=== PATIENT | male | born 1950 | race Caucasian/White ===

== ENCOUNTER 2017-09-08 10:52 | Emergency (ER) | payer MEDICARE ==
--- NOTE | 2017-09-08 11:36 | RAD ---
SINGLE VIEW OF THE CHEST: HISTORY: Chills, cough, and bodyaches for two weeks. COMPARISON: 04/04/2012 FINDINGS: A single view of the chest shows a normal sized cardiomediastinal silhouette. The patient is status post CABG. There is no evidence of consolidation, mass, or pleural effusion. IMPRESSION: No evidence of acute cardiopulmonary disease. POS: [facility]
[2017-09-08 11:59] LABS: #Basophils 0.1 thou/uL (0.0-0.2); #Eosinphils 0.1 thou/uL (0.0-0.7); #Lymphocytes 1.3 thou/uL (1.20-3.40); #Monocytes 0.8 thou/uL (0.11-0.59); #Neutrophils 4.4 thou/uL (1.40-6.50); %Basophils 0.8 % (0.0-1.0); %Eosinophils 1.1 % (0.0-10.0); %Lymphocytes 19.6 % (21.0-51.0); %Monocytes 12.2 % (0.0-10.0); %Neutrophils 66.2 % (42.0-75.0); Hemoglobin 12.7 g/dL (14.0-18.0); Mean Corpuscular HGB CONC 32.7 g/dL (32.0-36.0); Mean Corpuscular Hemoglobin 29.4 pg (27.0-31.0); Mean Corpuscular Volume 89.9 fl (80.0-94.0); Platelet Count 297 thou/uL (130-400); RBC Distribution Width 11.9 % (11.5-14.5); Red Blood Cell (RBC) Count 4.33 mill/uL (4.70-6.10); White Blood Cell (WBC) Count 6.6 thou/uL (4.8-10.8)
[2017-09-08 12:09] LABS: ALT (SGPT) 22 U/L (8-55); AST (SGOT) 19 U/L (5-34); Albumin 3.6 g/dL (3.4-4.8); Alkaline Phosphatase 77 U/L (40-150); Anion Gap 15 mmol/L (10-20); BUN (Urea Nitrogen) 19 mg/dL (8.4-25.7); Bilirubin, Total 0.7 mg/dL (0.2-1.2); CK (CPK) 61 U/L (30-200); Calc. Creatinine Clearance 0 mL/min (70-130); Calcium 9.6 mg/dL (7.8-10.44); Carbon Dioxide 26 mmol/L (23-31); Chloride 101 mmol/L (98-107); Estimated GFR-MDRD Greater than 90; Globulin 3.8 g/dL (2.4-3.5); Glucose 184 mg/dL (80-115); Lipase 8 U/L (8-78); Protein, Total 7.4 g/dL (5.8-8.1); Sodium 138 mmol/L (136-145)
[2017-09-08 12:10] LABS: CKMB 0.6 ng/mL (0-6.6); Troponin I Less than 0.010 ng/mL (< 0.028)
[2017-09-08 12:33] LABS: Bilirubin Negative (Negative); Blood, Urine Negative (Negative); Clarity Clear (Clear); Glucose, Urine (Dipstick) Negative (Negative); Leukocyte Negative (Negative); Nitrite Negative (Negative); Protein, Urine (Dipstick) Negative (Neg-Trace); Specific Gravity, Urine 1.025 (1.005-1.030); Urobilinogen 0.2 mg/dL (0.2-1.0); pH, Urine 5.5 (5.0-9.0)
[2017-09-08] MEDS ORDERED: Ketorolac Tromethamine 30 MG/ML VIAL ONE (12:47)
== END 2017-09-08 12:57 | disposition home or self-care (01) ==
LOC: SCSER 10:52
DX: J20.9 Acute bronchitis, unspecified (principal); I25.10 Atherosclerotic heart disease of native coronary artery without angina pectoris; I25.2 Old myocardial infarction; E11.9 Type 2 diabetes mellitus without complications; E78.5 Hyperlipidemia, unspecified; I10 Essential (primary) hypertension; J44.9 Chronic obstructive pulmonary disease, unspecified; F32.9 Major depressive disorder, single episode, unspecified; E66.9 Obesity, unspecified; Z79.899 Other long term (current) drug therapy; Z79.84 Long term (current) use of oral hypoglycemic drugs; Z79.82 Long term (current) use of aspirin
CPT/HCPCS: 71045; 80053; 81003; 82553; 83605; 83690; 83880; 84484; 85025; 87804; 93005; 94640; 96361; 96374; J1885; J7620

== ENCOUNTER 2017-09-17 07:47 | Inpatient (IN) | payer MEDICARE ==
[2017-09-17 08:32] LABS: #Lymphocytes 0.6 thou/uL (1.20-3.40); #Monocytes 0.7 thou/uL (0.11-0.59); #Neutrophils 6.5 thou/uL (1.40-6.50); %Basophils 0.3 % (0.0-1.0); %Eosinophils 0.6 % (0.0-10.0); %Monocytes 8.7 % (0.0-10.0); %Neutrophils 83.4 % (42.0-75.0); Hemoglobin 12.9 g/dL (14.0-18.0); Mean Corpuscular HGB CONC 32.7 g/dL (32.0-36.0); Mean Corpuscular Hemoglobin 30.9 pg (27.0-31.0); Mean Corpuscular Volume 94.6 fl (80.0-94.0); Mean Platelet Volume 6.2 fL (7.4-10.4); Platelet Count 407 thou/uL (130-400); RBC Distribution Width 12.9 % (11.5-14.5); Red Blood Cell (RBC) Count 4.18 mill/uL (4.70-6.10); White Blood Cell (WBC) Count 7.8 thou/uL (4.8-10.8)
[2017-09-17] MEDS ORDERED: methylPREDNISolone Sod Succ/PF 125 MG/2 ML VIAL ONE ×2 (08:40→08:41)
[2017-09-17] MEDS ORDERED: Sterile Water 10 ML ONE (08:41)
[2017-09-17 08:54] LABS: ALT (SGPT) 22 U/L (8-55); AST (SGOT) 17 U/L (5-34); Albumin 3.9 g/dL (3.4-4.8); Alkaline Phosphatase 94 U/L (40-150); Anion Gap 19 mmol/L (10-20); BUN (Urea Nitrogen) 21 mg/dL (8.4-25.7); CK (CPK) 82 U/L (30-200); Calc. Creatinine Clearance 0 mL/min (70-130); Calcium 9.7 mg/dL (7.8-10.44); Carbon Dioxide 20 mmol/L (23-31); Chloride 100 mmol/L (98-107); Estimated GFR-MDRD 67; Globulin 3.9 g/dL (2.4-3.5); Glucose 328 mg/dL (80-115); Potassium 3.7 mmol/L (3.5-5.1); Protein, Total 7.8 g/dL (5.8-8.1); Sodium 135 mmol/L (136-145)
[2017-09-17 08:59] LABS: CKMB 1.1 ng/mL (0-6.6); Troponin I Less than 0.010 ng/mL (< 0.028)
--- NOTE | 2017-09-17 09:29 | RAD ---
PORTABLE AP CHEST: Date: 09/17/17 HISTORY: Chest pain and shortness of breath. History of bronchitis. Febrile. COMPARISON: 09/08/17. FINDINGS: Postsurgical changes related to CABG are noted. Cardiac silhouette and pulmonary vasculature are with in normal limits. The lungs are clear. There has been no interval change from the prior exam. IMPRESSION: No acute cardiopulmonary process. POS: [facility]
[2017-09-17] MEDS ORDERED: Ondansetron HCl/PF 4 MG/2 ML Vial ONE ×2 (09:54→12:52)
--- NOTE | 2017-09-17 11:41 | CT ---
CTA THORAX WITH CONTRAST: (Computed Tomographic Angiography, chest(noncoronary) with contrast material, and image postprocessin g) (PE protocol) Date: 09/17/17 Time: 1101 hours HISTORY: 67-year-old male with chest pain, cough, fever, and chills. TECHNIQUE: IV injection of iodinated contrast: 100 mL [id number]. Scan acquisition timing attempted to coincide with iodinated contrast bolus reaching maximal density in pulmonary arteries. 3D MIP reconstructions. FINDINGS: There is no pulmonary thromboembolism. No thoracic aortic aneurysm or dissection. No pleural effusion or pneumothorax. There is a faint, moderate sized region of mild infiltrate in the right lower lobe. The rest of the lungs are clear. Sternotomy wires and surgical clips around the left side of the hea rt. No cardiomegaly or pericardial effusion. IMPRESSION: 1. Mild right lower lobe infiltrate is evidence for early right lower lobe pneumonia. 2. No evidence of pulmonary thromboembolism. 3. Status post coronary artery bypass graft surgery is evidence for coronary atherosclerotic disease . yudith[] POS: [facility]
[2017-09-17] MEDS ORDERED: Cefepime 2 GM/10 ML SYR ONE (12:52)
[2017-09-17] MEDS ORDERED: Dextrose 50% Abboject 50 ML SYRINGE SLOW IVP PRN (15:27)
[2017-09-17] MEDS ORDERED: HumaLOG 300 UNITS/3 ML VIAL SC PRN (15:27)
[2017-09-17] MEDS ORDERED: Dextrose 5% in Water 1,000 ML IV PRN (15:27)
[2017-09-17] MEDS ORDERED: Senokot 8.6 MG TAB PO PRN (15:27)
[2017-09-17] MEDS ORDERED: ISOVUE-370 76%-LOCM 1 ML ONE (16:45)
--- NOTE | 2017-09-17 16:54 | HP ---
REASON FOR ADMISSION: Pneumonia. HISTORY OF PRESENTING ILLNESS: The patient gives history of having coughing spells with expectoration of clear sputum, which has been ongoing for last 2 weeks or so. He also developed diarrhea from last night, had watery 4-5 episodes till the time he came to emergency room. He has also felt very nauseated and threw up one time in the house. His coughing spells has got him retrosternal chest burning sensation. The patient states he had come to emergency room 2 weeks back and was told he had bronchitis with flu and was given Zithromax. The patient states since then he has not really recovered well. He also mentions that he had a fever of 101 at home and 99.3 degrees on arrival here. PAST MEDICAL HISTORY AND SURGICAL HISTORY: History of coronary artery disease, CABG done for 5-vessel disease in 1998 at [place]. Cardiac catheterization done in January of last year at Dr. Fernandez's office showed patent grafts, left knee surgery done in 01/2017, diabetes mellitus type 2, hypertension, dyslipidemia, COPD, obesity, cholecystectomy, and feet surgeries. CURRENT MEDICATIONS: The patient is on sertraline 50 mg p.o. daily, Norvasc 5 mg p.o. daily, glipizide 5 mg p.o. twice daily, aspirin 81 mg p.o. daily, Ranexa 500 mg p.o. twice daily, Cozaar 100 mg p.o. daily, albuterol inhaler q.6 hourly p.r.n., Lipitor 40 mg p.o. at bedtime, Prilosec 20 mg daily, metformin 1 gram p.o. twice daily, Lopressor 50 mg p.o. twice daily, Symbicort inhaler 160/ 4.5 mcg 2 puffs twice daily, fish oil once daily. ALLERGIES: No known drug allergies. PERSONAL HISTORY: Does not abuse alcohol or drugs. No history of smoking. Lives with his . FAMILY HISTORY: Mother at the age of 93 years. She of old age and was apparently healthy until she . Father at the age of 77 years. He has had history of coronary artery disease, stroke and very bad gout. REVIEW OF SYSTEMS: The following complete review of systems was negative, unless otherwise mentioned in the HPI or below: Constitutional: Weight loss or gain, ability to conduct usual activities. Skin: Rash, itching. Eyes: Double vision, pain. ENT/Mouth: Nose bleeding, neck stiffness, pain, tenderness. Cardiovascular: Palpitations, dyspnea on exertion, orthopnea. Respiratory: Shortness of breath, wheezing, cough, hemoptysis, fever or night sweats. Gastrointestinal: Poor appetite, abdominal pain, heartburn, nausea, vomiting, constipation, or diarrhea. Genitourinary: Urgency, frequency, dysuria, nocturia. Musculoskeletal: Pain, swelling. Neurologic/Psychiatric: Anxiety, depression. Allergy/Immunologic: Skin rash, bleeding tendency. PHYSICAL EXAMINATION: GENERAL: The patient is a 67-year-old male who is currently not in any acute distress. VITAL SIGNS: Blood pressure 130/68, pulse 84 per minute, respiratory rate is 26 per minute, temperature 99.3 degrees Fahrenheit, and saturating 98% on room air. NECK: Supple, no elevated JVD. EYES: Extraocular muscles intact. Pupils reacting to light. ORAL CAVITY: Mucous membranes are moist. No exudates or congestion. CARDIOVASCULAR SYSTEM: S1, S2 heard. Regular rhythm. RESPIRATORY SYSTEM: Air entry 1+ bilateral. Scattered rhonchi plus and mild wheezing bilateral. ABDOMEN: Soft, bowel sounds heard. No tenderness, rigidity or guarding. EXTREMITIES: No peripheral edema or calf tenderness. VASCULAR SYSTEM: Peripheral pulses 1+ bilateral. No ischemic ulcerations or gangrene. CENTRAL NERVOUS SYSTEM: No gross focal deficits seen. Patient is lethargic, but oriented well. PSYCHIATRIC SYSTEM: The patient's mood is euthymic. No hallucinations or delusions. IMAGING DATA AND LABORATORY DATA: CT angio chest done shows mild right lower lobe infiltrate, no PE. Sodium 135. Serum bicarbonate 20, BUN 21, creatinine 1.1. Serum glucose 328. Liver enzymes within normal limits. First set of cardiac enzymes are negative. Albumin is 3.9. White count of 7.8, hemoglobin and hematocrit 12 and 39, platelet count 407 with 83% neutrophils, MCV is 94. EKG done shows normal sinus rhythm at 91 beats per minute. CLINICAL IMPRESSION AND PLAN: Patient will be admitted to telemetry for pneumonia with ongoing symptoms from last 2 weeks. He also has history of diabetes and coronary artery disease with prior coronary artery bypass grafting as well. The patient had systolic blood pressures in the 90s on arrival and was given 2 liters of normal saline bolus in the ER with systolic blood pressures coming up to 104. Likely, he was dehydrated due to 4-5 episodes of watery diarrhea and not been able to keep anything down due to nauseating feeling from this morning. He will be on Levaquin 500 mg IV daily along with DuoNebs. We will continue his aspirin, Lipitor, glipizide, Ranexa, and Zoloft as before. His Lopressor will be reduced to 25 mg twice daily and metformin reduced to 500 mg twice daily for now. We will continue to closely monitor him on telemetry for another 24 hours prior to transferring him to medical floor. We will also closely watch his systolic blood pressures in view of his prior history of coronary artery disease. SURJIT
[2017-09-17] MEDS ORDERED: metFORMIN 500 MG TAB PO SCH (17:00)
[2017-09-17 17:39] VITALS: BMI 41.5
[2017-09-17] MEDS: Guaifenesin DM 100-10/5 ML UDCUP PO PRN (17:54)
[2017-09-17] MEDS: glipiZIDE 5 MG TAB PO SCH (17:54)
[2017-09-17] MEDS: Acetaminophen 325 MG TAB PO PRN (17:54)
[2017-09-17] MEDS: Famotidine 20 MG TAB PO SCH (21:10)
[2017-09-17] MEDS: Atorvastatin Calcium 40 MG TAB PO SCH (21:11)
[2017-09-17] MEDS: HYDROcodone/Acetaminophen 5/325 mg Tablet PO PRN (21:11)
[2017-09-17] MEDS: Metoprolol Tartrate 25 MG TAB PO SCH (21:12)
[2017-09-17] MEDS: Benzonatate 100 MG CAP PO PRN (21:12)
[2017-09-17] MEDS: guaiFENesin ER 600 MG TAB PO SCH (21:12)
[2017-09-18 05:40] LABS: #Eosinphils 0.1 thou/uL (0.0-0.7); #Lymphocytes 0.5 thou/uL (1.20-3.40); #Monocytes 0.8 thou/uL (0.11-0.59); #Neutrophils 4.8 thou/uL (1.40-6.50); %Eosinophils 1.1 % (0.0-10.0); %Lymphocytes 8.5 % (21.0-51.0); %Monocytes 12.9 % (0.0-10.0); %Neutrophils 77.5 % (42.0-75.0); Hemoglobin 11.7 g/dL (14.0-18.0); Mean Corpuscular HGB CONC 32.8 g/dL (32.0-36.0); Mean Corpuscular Hemoglobin 31.6 pg (27.0-31.0); Mean Corpuscular Volume 96.3 fl (80.0-94.0); Mean Platelet Volume 6.5 fL (7.4-10.4); Platelet Count 364 thou/uL (130-400); RBC Distribution Width 12.9 % (11.5-14.5); White Blood Cell (WBC) Count 6.2 thou/uL (4.8-10.8)
[2017-09-18 05:49] LABS: Anion Gap 12 mmol/L (10-20); BUN (Urea Nitrogen) 12 mg/dL (8.4-25.7); Calc. Creatinine Clearance 136 mL/min (70-130); Calcium 9.1 mg/dL (7.8-10.44); Carbon Dioxide 25 mmol/L (23-31); Chloride 104 mmol/L (98-107); Estimated GFR-MDRD Greater than 90; Glucose 201 mg/dL (80-115); Potassium 4.5 mmol/L (3.5-5.1); Sodium 136 mmol/L (136-145)
[2017-09-18] MEDS: HYDROcodone/Acetaminophen 5/325 mg Tablet PO PRN ×3 (06:25→21:03)
[2017-09-18] MEDS: Benzonatate 100 MG CAP PO PRN ×2 (06:26→21:03)
[2017-09-18] MEDS: Enoxaparin Sodium 40 MG/0.4 ML SYRINGE SC SCH (08:43)
[2017-09-18] MEDS: guaiFENesin ER 600 MG TAB PO SCH ×2 (08:44→21:05)
[2017-09-18] MEDS: glipiZIDE 5 MG TAB PO SCH ×2 (08:44→17:26)
[2017-09-18] MEDS: Famotidine 20 MG TAB PO SCH ×2 (08:44→21:06)
[2017-09-18] MEDS: Metoprolol Tartrate 25 MG TAB PO SCH ×2 (08:44→21:06)
[2017-09-18] MEDS: metFORMIN 500 MG TAB PO SCH ×3 (08:44→17:26)
--- NOTE | 2017-09-18 11:20 | PDOC.PN ---
- Subjective Encounter Start Date: 09/18/17 Encounter Start Time: 10:35 Subjective: breathing better, still has some coughing spells -: no chest pain or palp -: is amb in room - Objective MAR Reviewed: Yes Vital Signs & Weight: Vital Signs (12 hours) Temp Pulse Resp BP Pulse Ox 09/18/17 07:43 93 L 09/18/17 07:39 65 12 09/18/17 07:35 97.9 F 64 16 108/55 L 94 L 09/18/17 04:00 98.5 F 65 18 112/56 L 95 09/17/17 23:45 82 16 92 L Weight Weight 242 lb I&O: 09/17/17 09/18/17 09/19/17 06:59 06:59 06:59 Intake Total 240 237 Output Total 800 Balance -560 237 Result Diagrams: 09/18/17 05:04 09/18/17 05:04 Additional Labs: Accuchecks 09/18/17 09/17/17 09/17/17 06:03 21:26 18:00 POC Glucose 189 H 264 H 286 H Phys Exam - Physical Examination HEENT: PERRLA, moist MMs Neck: no JVD, supple Respiratory: no wheezing, no rales rhonchi+ Cardiovascular: RRR, no significant murmur Gastrointestinal: soft, non-tender, positive bowel sounds Musculoskeletal: no edema, pulses present Neurological: non-focal, moves all 4 limbs Psychiatric: A&O x 3 Dx/Plan (1) PNA (pneumonia) Code(s): J18.9 - PNEUMONIA, UNSPECIFIED ORGANISM Status: Acute Qualifiers: Pneumonia type: due to unspecified organism (2) DM type 2 (diabetes mellitus, type 2) Status: Chronic Qualifiers: Diabetes mellitus complication status: with unspecified complications Diabetes mellitus intermediate insulin use: without petroleum 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 transplanted heart: [place] heart Associated angina: without angina Qualified Code(s): I25.810 - Atherosclerosis of coronary artery bypass graft(s) without angina pectoris (5) Dyslipidemia Code(s): E78.5 - HYPERLIPIDEMIA, UNSPECIFIED Status: Chronic - Plan is on levaquin, nebs -: await viral pcr -: may tx to medical floor -: to ambulate in hallway as tolerated -: asp, lopressor, ranexa, lipitor, increase metformin to tid * . Review of Systems - Medications/Allergies Allergies/Adverse Reactions: Allergies Allergy/AdvReac Type Severity Reaction Status Date / Time No Known Allergies Allergy Unverified 09/17/17 16:24 Medications: Current Medications Acetaminophen (Tylenol) 650 mg PO Q4H PRN PRN Reason: Headache/Fever or Pain Last Admin: 09/17/17 17:54 Dose: 650 mg Hydrocodone Bitart/Acetaminophen ([place] 5/325) 1 tab PO Q4H PRN PRN Reason: PAIN SCALE 1-5 Hydrocodone Bitart/Acetaminophen ([place] 5/325) 2 tab PO Q4H PRN PRN Reason: PAIN SCALE 6-10 Last Admin: 09/18/17 06:25 Dose: 2 tab Albuterol/Ipratropium (Duoneb) 3 ml NEB [id number] PRN PRN Reason: SOB &/or Wheezing Last Admin: 09/18/17 07:39 Dose: 3 ml Aspirin (Aspirin Chewable) 81 mg PO DAILY [facility] Last Admin: 09/18/17 08:44 Dose: 81 mg Atorvastatin Calcium (Lipitor) 40 mg PO HS [facility] Last Admin: 09/17/17 21:11 Dose: 40 mg Benzonatate (Tessalon) 200 mg PO Q6H PRN PRN Reason: Cough Last Admin: 09/18/17 06:26 Dose: 200 mg Dextrose/Water (Dextrose 50%) 25 gm SLOW IVP PRN PRN PRN Reason: Hypoglycemia Enoxaparin Sodium (Lovenox) 40 mg SC 0900 [facility] Last Admin: 09/18/17 08:43 Dose: 40 mg Famotidine (Pepcid) 20 mg PO BID [facility] Last Admin: 09/18/17 08:44 Dose: 20 mg Glipizide (Glucotrol) 5 mg PO BID-AC [facility] Last Admin: 09/18/17 08:44 Dose: 5 mg Glucagon (Glucagon) 1 mg IM PRN PRN PRN Reason: Hypoglycemia Guaifenesin (Mucinex) 600 mg PO Q12HR [facility] Last Admin: 09/18/17 08:44 Dose: 600 mg Guaifenesin/Dextromethorphan (Robitussin Dm) 15 ml PO Q4H PRN PRN Reason: Cough Last Admin: 09/17/17 17:54 Dose: 15 ml Dextrose/Water (D5w) 1,000 mls @ 0 mls/hr IV .Q0M PRN; As Directed PRN Reason: Hypoglycemia Levofloxacin 500 mg/ Device 100 mls @ 100 mls/hr IVPB 1300 [facility] Insulin Human Lispro (Humalog) 0 units SC .MODERATE SLIDING SC PRN PRN Reason: Moderate Correctional Scale Insulin Human Lispro (Humalog) 0 units SC .BEDTIME SLIDING SC PRN PRN Reason: Bedtime Correctional Scale Metformin HCl (Glucophage) 500 mg PO TID-[facility] Last Admin: 09/18/17 08:44 Dose: 500 mg Metoprolol Tartrate (Lopressor) 25 mg PO BID [facility] Last Admin: 09/18/17 08:44 Dose: 25 mg Ranolazine (Ranexa) 500 mg PO BID [facility] Last Admin: 09/18/17 08:45 Dose: 500 mg Senna (Senokot) 2 tab PO HSPRN PRN PRN Reason: Constipation Sertraline HCl (Zoloft) 50 mg PO [facility]
[2017-09-18] MEDS: Levofloxacin 750 mg/D5W 500 MG in Premix Bag 1 BAG IVPB SCH (12:23)
[2017-09-18] MEDS: Atorvastatin Calcium 40 MG TAB PO SCH (21:06)
[2017-09-19] MEDS: HYDROcodone/Acetaminophen 5/325 mg Tablet PO PRN ×2 (01:44→11:59)
[2017-09-19] MEDS: Guaifenesin DM 100-10/5 ML UDCUP PO PRN ×2 (01:46→12:00)
[2017-09-19 04:36] LABS: #Eosinphils 0.1 thou/uL (0.0-0.7); #Lymphocytes 0.9 thou/uL (1.20-3.40); #Monocytes 0.7 thou/uL (0.11-0.59); #Neutrophils 4.1 thou/uL (1.40-6.50); %Basophils 0.5 % (0.0-1.0); %Eosinophils 1.1 % (0.0-10.0); %Monocytes 11.5 % (0.0-10.0); %Neutrophils 70.9 % (42.0-75.0); Hemoglobin 12.1 g/dL (14.0-18.0); Mean Corpuscular HGB CONC 32.1 g/dL (32.0-36.0); Mean Corpuscular Hemoglobin 30.8 pg (27.0-31.0); Mean Corpuscular Volume 96.2 fl (80.0-94.0); Mean Platelet Volume 6.3 fL (7.4-10.4); Platelet Count 304 thou/uL (130-400); RBC Distribution Width 12.9 % (11.5-14.5); Red Blood Cell (RBC) Count 3.91 mill/uL (4.70-6.10); White Blood Cell (WBC) Count 5.8 thou/uL (4.8-10.8)
[2017-09-19 05:05] LABS: Anion Gap 11 mmol/L (10-20); BUN (Urea Nitrogen) 19 mg/dL (8.4-25.7); Calc. Creatinine Clearance 131 mL/min (70-130); Calcium 8.8 mg/dL (7.8-10.44); Carbon Dioxide 29 mmol/L (23-31); Chloride 101 mmol/L (98-107); Estimated GFR-MDRD Greater than 90; Glucose 78 mg/dL (80-115); Sodium 137 mmol/L (136-145)
[2017-09-19] MEDS: glipiZIDE 5 MG TAB PO SCH ×2 (06:34→17:27)
[2017-09-19] MEDS: Metoprolol Tartrate 25 MG TAB PO SCH ×2 (09:07→22:06)
[2017-09-19] MEDS: metFORMIN 500 MG TAB PO SCH ×3 (09:07→17:27)
[2017-09-19] MEDS: guaiFENesin ER 600 MG TAB PO SCH ×2 (09:08→22:06)
[2017-09-19] MEDS: Enoxaparin Sodium 40 MG/0.4 ML SYRINGE SC SCH (09:08)
[2017-09-19] MEDS: Famotidine 20 MG TAB PO SCH ×2 (09:08→22:06)
--- NOTE | 2017-09-19 12:57 | PDOC.PN ---
- Subjective Encounter Start Date: 09/19/17 Encounter Start Time: 09:50 Subjective: c/o dry coughing spells, is breathing better -: has amb in hallway with his - Objective MAR Reviewed: Yes Vital Signs & Weight: Vital Signs (12 hours) Temp Pulse Resp BP Pulse Ox 09/19/17 12:47 78 18 96 09/19/17 09:00 98.8 F 74 18 138/81 93 L 09/19/17 08:00 98.8 F 74 18 93 L 09/19/17 04:00 99.4 F 67 19 117/70 93 L 09/19/17 01:30 99 F 79 16 96 09/19/17 01:27 96 09/19/17 01:25 79 16 96 Weight Weight 242 lb I&O: 09/18/17 09/19/17 09/20/17 06:59 06:59 06:59 Intake Total 240 1757 Output Total 800 Balance -560 1757 Result Diagrams: 09/19/17 04:04 09/19/17 04:04 Additional Labs: Accuchecks 09/19/17 09/19/17 09/18/17 12:00 06:12 20:49 POC Glucose 78 101 87 09/18/17 16:38 POC Glucose 99 Phys Exam - Physical Examination HEENT: PERRLA, moist MMs Neck: no JVD, supple Respiratory: no wheezing, no rales rhonchi+ Cardiovascular: RRR, no significant murmur Gastrointestinal: soft, non-tender, positive bowel sounds Musculoskeletal: no edema, pulses present Neurological: non-focal, moves all 4 limbs Psychiatric: A&O x 3 Dx/Plan (1) PNA (pneumonia) Code(s): J18.9 - PNEUMONIA, UNSPECIFIED ORGANISM Status: Acute Qualifiers: Pneumonia type: due to unspecified organism (2) DM type 2 (diabetes mellitus, type 2) Status: Chronic Qualifiers: Diabetes mellitus complication status: with unspecified complications 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 transplanted heart: [place] heart Associated angina: without angina Qualified Code(s): I25.810 - Atherosclerosis of coronary artery bypass graft(s) without angina pectoris (5) Dyslipidemia Code(s): E78.5 - HYPERLIPIDEMIA, UNSPECIFIED Status: Chronic (6) COPD exacerbation Code(s): J44.1 - CHRONIC OBSTRUCTIVE PULMONARY DISEASE W (ACUTE) EXACERBATION Status: Acute - Plan will add solumedrol -: nebs, levaquin -: on asp, lipitor, lopressor, ranexa, metformin bid -: to mobilize as tolerated -: dc plan in 24-36hrs if stable * . Review of Systems - Medications/Allergies Allergies/Adverse Reactions: Allergies Allergy/AdvReac Type Severity Reaction Status Date / Time No Known Allergies Allergy Unverified 09/17/17 16:24 Medications: Current Medications Acetaminophen (Tylenol) 650 mg PO Q4H PRN PRN Reason: Headache/Fever or Pain Last Admin: 09/17/17 17:54 Dose: 650 mg Hydrocodone Bitart/Acetaminophen ([place] 5/325) 1 tab PO Q4H PRN PRN Reason: PAIN SCALE 1-5 Last Admin: 09/19/17 11:59 Dose: 1 tab Hydrocodone Bitart/Acetaminophen ([place] 5/325) 2 tab PO Q4H PRN PRN Reason: PAIN SCALE 6-10 Last Admin: 09/19/17 01:44 Dose: 2 tab Albuterol/Ipratropium (Duoneb) 3 ml NEB QID-RT [facility] Aspirin (Aspirin Chewable) 81 mg PO DAILY [facility] Last Admin: 09/19/17 09:07 Dose: 81 mg Atorvastatin Calcium (Lipitor) 40 mg PO HS [facility] Last Admin: 09/18/17 21:06 Dose: 40 mg Benzonatate (Tessalon) 200 mg PO Q6H PRN PRN Reason: Cough Last Admin: 09/18/17 21:03 Dose: 200 mg Dextrose/Water (Dextrose 50%) 25 gm SLOW IVP PRN PRN PRN Reason: Hypoglycemia Enoxaparin Sodium (Lovenox) 40 mg SC 0900 [facility] Last Admin: 09/19/17 09:08 Dose: 40 mg Famotidine (Pepcid) 20 mg PO BID [facility] Last Admin: 09/19/17 09:08 Dose: 20 mg Glipizide (Glucotrol) 5 mg PO BID-AC [facility] Last Admin: 09/19/17 06:34 Dose: 5 mg Glucagon (Glucagon) 1 mg IM PRN PRN PRN Reason: Hypoglycemia Guaifenesin (Mucinex) 600 mg PO Q12HR [facility] Last Admin: 09/19/17 09:08 Dose: 600 mg Guaifenesin/Dextromethorphan (Robitussin Dm) 15 ml PO Q4H PRN PRN Reason: Cough Last Admin: 09/19/17 12:00 Dose: 15 ml Dextrose/Water (D5w) 1,000 mls @ 0 mls/hr IV .Q0M PRN; As Directed PRN Reason: Hypoglycemia Levofloxacin 500 mg/ Device 100 mls @ 100 mls/hr IVPB 1300 [facility] Last Admin: 09/18/17 12:23 Dose: 100 mls Insulin Human Lispro (Humalog) 0 units SC .MODERATE SLIDING SC PRN PRN Reason: Moderate [place] Scale Insulin Human Lispro (Humalog) 0 units SC .BEDTIME SLIDING SC PRN PRN Reason: Bedtime Correctional Scale Metformin HCl (Glucophage) 500 mg PO TID-[facility] Last Admin: 09/19/17 12:00 Dose: 500 mg Methylprednisolone Sodium Succinate (Solu-Medrol) 20 mg IVP Q8HR [facility] Metoprolol Tartrate (Lopressor) 25 mg PO BID [facility] Last Admin: 09/19/17 09:07 Dose: 25 mg Ranolazine (Ranexa) 500 mg PO BID [facility] Last Admin: 09/19/17 09:07 Dose: 500 mg Senna (Senokot) 2 tab PO HSPRN PRN PRN Reason: Constipation Sertraline HCl (Zoloft) 50 mg PO HS [facility] Last Admin: 09/18/17 21:18 Dose: Not Given
[2017-09-19] MEDS: Levofloxacin 750 mg/D5W 500 MG in Premix Bag 1 BAG IVPB SCH (14:22)
[2017-09-19] MEDS: Acetaminophen 325 MG TAB PO PRN ×2 (14:26→22:08)
[2017-09-19] MEDS ORDERED: Ondansetron HCl/PF 4 MG/2 ML Vial SLOW IVP PRN (19:13)
[2017-09-19] MEDS: Atorvastatin Calcium 40 MG TAB PO SCH (22:06)
[2017-09-20] MEDS: HumaLOG 300 UNITS/3 ML VIAL SC PRN ×2 (06:35→13:43)
[2017-09-20] MEDS: glipiZIDE 5 MG TAB PO SCH ×2 (06:37→15:55)
[2017-09-20] MEDS: Guaifenesin DM 100-10/5 ML UDCUP PO PRN (06:42)
[2017-09-20] MEDS: predniSONE 5 MG TAB PO SCH (07:52)
[2017-09-20] MEDS: metFORMIN 500 MG TAB PO SCH ×3 (07:53→16:01)
[2017-09-20] MEDS: Enoxaparin Sodium 40 MG/0.4 ML SYRINGE SC SCH (09:04)
[2017-09-20] MEDS: guaiFENesin ER 600 MG TAB PO SCH ×2 (09:05→20:29)
[2017-09-20] MEDS: Metoprolol Tartrate 25 MG TAB PO SCH ×2 (09:05→20:29)
[2017-09-20] MEDS: Famotidine 20 MG TAB PO SCH ×2 (09:05→20:29)
--- NOTE | 2017-09-20 11:18 | PDOC.PN ---
- Subjective Encounter Start Date: 09/20/17 Encounter Start Time: 09:45 Subjective: had fever of 100 last night, no sob -: coughing spells are better -: is amb in hallway - Objective MAR Reviewed: Yes Vital Signs & Weight: Vital Signs (12 hours) Temp Pulse Resp BP Pulse Ox 09/20/17 09:47 78 16 96 09/20/17 08:00 98.9 F 70 18 107/58 L 95 09/20/17 05:51 68 16 95 09/20/17 04:55 97.9 F 67 18 111/70 93 L 09/20/17 00:46 100.0 F H 74 18 118/73 93 L Weight Weight 242 lb I&O: 09/19/17 09/20/17 09/21/17 06:59 06:59 06:59 Intake Total 1757 1950 Balance 1757 1950 Result Diagrams: 09/19/17 04:04 09/19/17 04:04 Additional Labs: Accuchecks 09/20/17 09/19/17 09/19/17 05:58 20:36 16:38 POC Glucose 174 H 149 H 107 09/19/17 12:00 POC Glucose 78 Phys Exam - Physical Examination HEENT: PERRLA, moist MMs Neck: no JVD, supple Respiratory: no wheezing, no rales rhonchi++ Cardiovascular: RRR, no significant murmur Gastrointestinal: soft, non-tender, positive bowel sounds Musculoskeletal: no edema, pulses present Neurological: non-focal, moves all 4 limbs Psychiatric: A&O x 3 Dx/Plan (1) PNA (pneumonia) Code(s): J18.9 - PNEUMONIA, UNSPECIFIED ORGANISM Status: Acute Qualifiers: Pneumonia type: due to unspecified organism (2) DM type 2 (diabetes mellitus, type 2) Status: Chronic Qualifiers: Diabetes mellitus complication status: with unspecified complications 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 transplanted heart: [place] heart Associated angina: without angina Qualified Code(s): I25.810 - Atherosclerosis of coronary artery bypass graft(s) without angina pectoris (5) Dyslipidemia Code(s): E78.5 - HYPERLIPIDEMIA, UNSPECIFIED Status: Chronic (6) COPD exacerbation Code(s): J44.1 - CHRONIC OBSTRUCTIVE PULMONARY DISEASE W (ACUTE) EXACERBATION Status: Acute - Plan on oral prednisone, nebs, levaquin -: continue asp, ranexa, lopressor and lipitor -: dc plan in am when afebrile -: to continue to amb as tolerated * . Review of Systems - Medications/Allergies Allergies/Adverse Reactions: Allergies Allergy/AdvReac Type Severity Reaction Status Date / Time No Known Allergies Allergy Unverified 09/17/17 16:24 Medications: Current Medications Acetaminophen (Tylenol) 650 mg PO Q4H PRN PRN Reason: Headache/Fever or Pain Last Admin: 09/19/17 22:08 Dose: 650 mg Hydrocodone Bitart/Acetaminophen ([place] 5/325) 1 tab PO Q4H PRN PRN Reason: PAIN SCALE 1-5 Last Admin: 09/19/17 11:59 Dose: 1 tab Hydrocodone Bitart/Acetaminophen ([place] 5/325) 2 tab PO Q4H PRN PRN Reason: PAIN SCALE 6-10 Last Admin: 09/19/17 01:44 Dose: 2 tab Albuterol/Ipratropium (Duoneb) 3 ml NEB QID-RT [facility] Last Admin: 09/20/17 09:47 Dose: 3 ml Aspirin (Aspirin Chewable) 81 mg PO DAILY [facility] Last Admin: 09/20/17 09:04 Dose: 81 mg Atorvastatin Calcium (Lipitor) 40 mg PO HS [facility] Last Admin: 09/19/17 22:06 Dose: 40 mg Benzonatate (Tessalon) 200 mg PO Q6H PRN PRN Reason: Cough Last Admin: 09/18/17 21:03 Dose: 200 mg Dextrose/Water (Dextrose 50%) 25 gm SLOW IVP PRN PRN PRN Reason: Hypoglycemia Enoxaparin Sodium (Lovenox) 40 mg SC 0900 [facility] Last Admin: 09/20/17 09:04 Dose: 40 mg Famotidine (Pepcid) 20 mg PO BID [facility] Last Admin: 09/20/17 09:05 Dose: 20 mg Glipizide (Glucotrol) 5 mg PO BID-[facility] Last Admin: 09/20/17 06:37 Dose: 5 mg Glucagon (Glucagon) 1 mg IM PRN PRN PRN Reason: Hypoglycemia Guaifenesin (Mucinex) 600 mg PO Q12HR [facility] Last Admin: 09/20/17 09:05 Dose: 600 mg Guaifenesin/Dextromethorphan (Robitussin Dm) 15 ml PO Q4H PRN PRN Reason: Cough Last Admin: 09/20/17 06:42 Dose: 15 ml Dextrose/Water (D5w) 1,000 mls @ 0 mls/hr IV .Q0M PRN; As Directed PRN Reason: Hypoglycemia Levofloxacin 500 mg/ Device 100 mls @ 100 mls/hr IVPB 1300 [facility] Last Admin: 09/19/17 14:22 Dose: 100 mls Insulin Human Lispro (Humalog) 0 units SC .MODERATE SLIDING SC PRN PRN Reason: Moderate Correctional Scale Last Admin: 09/20/17 06:35 Dose: 2 units Insulin Human Lispro (Humalog) 0 units SC .BEDTIME SLIDING SC PRN PRN Reason: Bedtime Correctional Scale Metformin HCl (Glucophage) 500 mg PO TID[facility] Last Admin: 09/20/17 07:53 Dose: 500 mg Metoprolol Tartrate (Lopressor) 25 mg PO BID [facility] Last Admin: 09/20/17 09:05 Dose: 25 mg Ondansetron HCl (Zofran) 4 mg SLOW IVP Q6H PRN PRN Reason: Nausea/Vomiting Last Admin: 09/19/17 19:26 Dose: 4 mg Prednisone (Prednisone) 5 mg PO QAM[facility] Last Admin: 09/20/17 07:52 Dose: 5 mg Ranolazine (Ranexa) 500 mg PO BID [facility] Last Admin: 09/20/17 09:05 Dose: 500 mg Senna (Senokot) 2 tab PO HSPRN PRN PRN Reason: Constipation Sertraline HCl (Zoloft) 50 mg PO [facility] Last Admin: 09/19/17 22:07 Dose: 50 mg Sodium Chloride (Flush - Normal Saline) 10 ml IVF Q12HR [facility] Last Admin: 09/20/17 09:05 Dose: 10 ml Sodium Chloride (Flush - Normal Saline) 10 ml IVF PRN PRN PRN Reason: Saline Flush
[2017-09-20] MEDS: Levofloxacin 750 mg/D5W 500 MG in Premix Bag 1 BAG IVPB SCH (12:30)
[2017-09-20] MEDS: Atorvastatin Calcium 40 MG TAB PO SCH (20:28)
[2017-09-21] MEDS: Guaifenesin DM 100-10/5 ML UDCUP PO PRN (01:09)
[2017-09-21] MEDS: glipiZIDE 5 MG TAB PO SCH (06:32)
[2017-09-21 08:28] VITALS: BP 116/80; TEMP 98
[2017-09-21] MEDS: predniSONE 5 MG TAB PO SCH (08:37)
[2017-09-21] MEDS: metFORMIN 500 MG TAB PO SCH (08:37)
[2017-09-21] MEDS: Enoxaparin Sodium 40 MG/0.4 ML SYRINGE SC SCH (08:37)
[2017-09-21] MEDS: Famotidine 20 MG TAB PO SCH (08:37)
[2017-09-21] MEDS: Metoprolol Tartrate 25 MG TAB PO SCH (08:38)
[2017-09-21] MEDS: guaiFENesin ER 600 MG TAB PO SCH (08:38)
--- NOTE | 2017-09-21 10:13 | PDOC.PN ---
- Subjective Encounter Start Date: 09/21/17 Encounter Start Time: 07:00 Subjective: feels better, no sob -: is amb and eating better - Objective MAR Reviewed: Yes Vital Signs & Weight: Vital Signs (12 hours) Temp Pulse Resp BP Pulse Ox 09/21/17 09:35 74 14 95 09/21/17 07:55 98.0 F 79 18 116/80 94 L 09/21/17 07:30 98.1 F 71 16 09/21/17 06:26 71 16 96 09/21/17 04:47 98.1 F 70 18 117/74 91 L 09/21/17 00:21 98.8 F 72 16 112/74 93 L Weight Weight 242 lb I&O: 09/20/17 09/21/17 09/22/17 06:59 06:59 06:59 Intake Total 1950 2170 Balance 1950 2170 Result Diagrams: 09/19/17 04:04 09/19/17 04:04 Additional Labs: Accuchecks 09/21/17 09/20/17 09/20/17 05:37 20:40 15:54 POC Glucose 101 104 137 H 09/20/17 11:27 POC Glucose 247 H Phys Exam - Physical Examination HEENT: PERRLA, moist MMs Neck: no JVD, supple Respiratory: no wheezing, no rales Cardiovascular: RRR, no significant murmur Gastrointestinal: soft, non-tender, positive bowel sounds Musculoskeletal: no edema, pulses present Neurological: non-focal, moves all 4 limbs Psychiatric: A&O x 3 Dx/Plan (1) PNA (pneumonia) Code(s): J18.9 - PNEUMONIA, UNSPECIFIED ORGANISM Status: Acute Qualifiers: Pneumonia type: due to unspecified organism (2) DM type 2 (diabetes mellitus, type 2) Status: Chronic Qualifiers: Diabetes mellitus complication status: with unspecified complications Diabetes mellitus [facility] insulin use: without intermodal dispatcher use Qualified Code( s): E11.8 - Type 2 diabetes mellitus with unspecified complications (3) HTN (hypertension) Code(s): I10 - ESSENTIAL (PRIMARY) HYPERTENSION Status: Chronic Qualifiers: Hypertension type: essential hypertension Qualified Code(s): I10 - Essential (primary) hypertension (4) CAD (coronary artery disease) Code(s): I25.10 - ATHSCL HEART DISEASE OF [place] CORONARY ARTERY W/O ANG PCTRS Status: Chronic Qualifiers: Coronary Disease-Associated Artery/Lesion type: bypass graft [place] vs. transplanted heart: [place] heart Associated angina: without angina Qualified Code(s): I25.810 - Atherosclerosis of coronary artery bypass graft(s) without angina pectoris (5) Dyslipidemia Code(s): E78.5 - HYPERLIPIDEMIA, UNSPECIFIED Status: Chronic (6) COPD exacerbation Code(s): J44.1 - CHRONIC OBSTRUCTIVE PULMONARY DISEASE W (ACUTE) EXACERBATION Status: Acute - Plan oral prednisone for 5 days along with levaquin -: dc pt home -: htn meds reconciled for current vital signs -: to f/u with PCP in 1 week. * .
--- NOTE | 2017-09-21 15:17 | DIS ---
DATE OF ADMISSION: 09/17/2017 DISCHARGE DISPOSITION: 09/21/2017 PRIMARY DISCHARGE DIAGNOSES: 1. Pneumonia, likely community acquired. 2. Mild chronic obstructive pulmonary disease exacerbation. SECONDARY DISCHARGE DIAGNOSES: Diabetes mellitus type 2, hypertension, history of coronary artery di sease, dyslipidemia. PROCEDURES DONE DURING HOSPITALIZATION: CT angio chest done showed mild right lower lobe infiltrate, likely right lower lobe pneumonia, no evidence of PE. Respiratory cultures grew normal respiratory andrew, H&H 12 and 37, platelet count 304. BNP was 82. Cardiac enzymes were negative. DISCHARGE MEDICATIONS: Patient to continue Ranexa 500 mg p.o. twice daily, Zoloft 50 mg p.o. daily, prednisone 5 mg p.o. daily for another 5 days, Levaquin 500 mg p.o. daily for another 5 days, Lopress or 25 mg p.o. twice daily, omeprazole 20 mg p.o. daily, Cozaar 25 mg p.o. daily, metformin 500 mg p.o . daily, glipizide 5 mg p.o. twice daily, Symbicort inhaler 2 puffs twice daily, atorvastatin 40 mg p .o. at bedtime, aspirin 81 mg p.o. daily, DuoNebs q.6 hourly p.r.n. ALLERGIES: No known drug allergies. DISCHARGE PLAN: Patient to follow up with primary care physician in 1 week. He is also advised to c heck fingerstick glucose, blood pressure and pulse daily and record on a sheet of paper to follow up with primary care physician in 1 week. BRIEF COURSE DURING HOSPITALIZATION: The patient initially got admitted on the with complaints of cough and shortness of breath. He has also had a temperature of 101 degrees at home. In view of this and the initial CT angio chest done which revealed early pneumonia in the right lower lobe the reta robles was admitted to medical floor. He was placed on IV antibiotics, nebulizers and his home medic ations were selectively continued. The patient continued to have trouble with shortness of breath an d wheezing. He was placed on a short course of steroids, which have been rapidly tapered at the time of discharge. Prior to discharge, he is ambulating on the floor, eating well and his shortness of b reath and coughing spells have come down drastically. He needs to continue antibiotics for another 5 days along with prednisone as well. Please note the patient's antihypertensive medications, the dos ing of which have been reduced due to his systolic blood pressures ranging in the 110-120s. Please see a face to face documentation on [facility] for the day of discharge.
--- NOTE | 2017-10-01 20:20 | EKG ---
Test Reason : Blood Pressure : / mmHG Vent. Rate : 119 BPM Atrial Rate : 119 BPM P-R Int : 116 ms QRS Dur : 084 ms QT Int : 336 ms P-R-T Axes : 053 030 057 degrees QTc Int : 472 ms Sinus tachycardia Possible Inferior infarct , age undetermined Abnormal ECG Confirmed by GALO MONSON MD ([id number]), film editor MAULIK APONTE ([id number]) on 10/01/2017 8:20:26 PM Referred By: Confirmed By:GALO MONSON MD
--- NOTE | 2017-10-01 20:25 | EKG ---
Test Reason : Blood Pressure : / mmHG Vent. Rate : 091 BPM Atrial Rate : 091 BPM P-R Int : 148 ms QRS Dur : 086 ms QT Int : 378 ms P-R-T Axes : 048 021 061 degrees QTc Int : 464 ms Normal sinus rhythm Nonspecific T wave abnormality Prolonged QT Abnormal ECG No changes Confirmed by ERMIAS MENDOZA, GALO ([id number]), health editor MAULIK APONTE ([id number]) on 10/01/2017 8:24:39 PM Referred By: Confirmed By:GALO MONSON MD
== END 2017-09-21 11:24 | disposition home or self-care (01) | DRG 190 ==
LOC: ERS 07:47 → 2NO 16:59 → SURG A 09-19 00:21
PROVIDERS: ADMIT Internal Medicine; ATTEND Internal Medicine
DX: J44.0 Chronic obstructive pulmonary disease with (acute) lower respiratory infection (principal); J18.9 Pneumonia, unspecified organism; Z68.41 Body mass index [BMI] 40.0-44.9, adult; J44.1 Chronic obstructive pulmonary disease with (acute) exacerbation; E11.9 Type 2 diabetes mellitus without complications; I25.10 Atherosclerotic heart disease of native coronary artery without angina pectoris; I10 Essential (primary) hypertension; E78.5 Hyperlipidemia, unspecified; E86.0 Dehydration; E66.9 Obesity, unspecified; Z95.1 Presence of aortocoronary bypass graft; Z79.84 Long term (current) use of oral hypoglycemic drugs; Z79.82 Long term (current) use of aspirin; Z79.899 Other long term (current) drug therapy
CPT/HCPCS: 36415; 36416; 71045; 71275; 80048; 80053; 82550; 82553; 83880; 84484; 85025; 87070; 87205; 93005; 94640; 94760; 96361; 96365; 96375; 96376; A4216; J0692; J1650; J1956; J2270; J2405; J2920; J2930; J7620

== ENCOUNTER 2018-07-11 10:59 | Outpatient (CLI) | payer MEDICARE ==
--- NOTE | 2018-07-11 12:21 | RAD ---
RADIOGRAPH LUMBAR SPINE 3 VIEWS: 07/11/2018 HISTORY: A 68-year-old male with lumbar spondylosis without myelopathy. COMPARISON: 08/27/2014 FINDINGS: There are five lumbar type vertebrae. Vertebral body heights are maintained. No scoliosis. T12-L1, L1-L2, and L2-L3 disk spaces are maintained. Moderate disk space narrowing, endplate sclerosis, and small to moderate endplate osteophytosis at L3 -L4. The disk space narrowing has slightly worsened. At L4-L5, there is moderate disk space narrowing and small posterior endplate marginal osteophytes th at are larger than on the previous study, encroaching upon the anterior aspect of the spinal canal. The L5-S1 disk space is maintained. No major spondylolisthesis. IMPRESSION: Moderate degenerative disk disease at L3-L4 and L4-L5. JN [] POS: [facility]
== END 2018-07-11 11:00 | disposition home or self-care (01) ==
LOC: BICRAD 10:59
PROVIDERS: ATTEND Internal Medicine Rheumatology
DX: M47.817 Spondylosis without myelopathy or radiculopathy, lumbosacral region (principal); M51.36 Other intervertebral disc degeneration, lumbar region
CPT/HCPCS: 72100

== ENCOUNTER 2023-04-08 21:06 | Emergency (ER) | payer MEDICARE, OTHER ==
[2023-04-08 21:46] LABS: #Basophils 0.1 thou/uL (0.0-0.2); #Eosinphils 0.2 thou/uL (0.0-0.7); #Monocytes 0.9 thou/uL (0.11-0.59); #Neutrophils 4.5 thou/uL (1.40-6.50); %Basophils 0.8 % (0.0-1.0); %Eosinophils 3.1 % (0.0-10.0); %Lymphocytes 24.1 % (21.0-51.0); %Monocytes 12.3 % (0.0-10.0); %Neutrophils 59.6 % (42.0-75.0); Hematocrit 39.9 % (42.0-52.0); Mean Corpuscular HGB CONC 32.6 g/dL (32.0-36.0); Mean Corpuscular Hemoglobin 31.1 pg (27.0-31.0); Mean Corpuscular Volume 95.5 fl (78.0-98.0); Mean Platelet Volume 8.8 fL (7.4-10.4); Platelet Count 219 10x3/uL (130-400); RBC Distribution Width 14.1 % (11.5-14.5); Red Blood Cell (RBC) Count 4.18 mill/uL (4.70-6.10); White Blood Cell (WBC) Count 7.5 10x3/uL (4.8-10.8)
[2023-04-08 22:19] LABS: Troponin I Less than 0.010 ng/mL (< 0.028)
[2023-04-08 22:20] LABS: SARS-CoV-2 NAA Rapid Test Not Detected (NotDetected)
[2023-04-08 22:20] LABS: ALT (SGPT) 13 U/L (8-55); AST (SGOT) 14 U/L (5-34); Albumin 3.9 g/dL (3.4-4.8); Alkaline Phosphatase 78 U/L (40-110); Anion Gap 16 mmol/L (10-20); BUN (Urea Nitrogen) 16 mg/dL (8.4-25.7); Bilirubin, Total 0.5 mg/dL (0.2-1.2); Calc. Creatinine Clearance 0 mL/min (70-130); Calcium 9.5 mg/dL (7.8-10.44); Carbon Dioxide 24 mmol/L (23-31); Chloride 104 mmol/L (98-107); Estimated GFR 62; Globulin 3.1 g/dL (2.4-3.5); Glucose 129 mg/dL (83-110); Sodium 140 mmol/L (136-145)
[2023-04-08] MEDS ORDERED: Amoxicillin/Potassium Clav 875 MG TAB ONE (22:34)
[2023-04-08] MEDS ORDERED: predniSONE 20 MG TAB ONE (22:34)
== END 2023-04-08 22:43 | disposition home or self-care (01) ==
LOC: ERS 21:06
DX: J44.1 Chronic obstructive pulmonary disease with (acute) exacerbation (principal); E11.9 Type 2 diabetes mellitus without complications; E78.2 Mixed hyperlipidemia; I10 Essential (primary) hypertension; E66.9 Obesity, unspecified; Z20.822 Contact with and (suspected) exposure to COVID-19
CPT/HCPCS: 0240U; 71045; 80053; 83880; 84484; 85025; 87081; 87430; 36415; J7512

== ENCOUNTER 2023-11-03 15:15 | Outpatient (CLI) | payer OTHER | END 2023-11-03 15:16 | disposition home or self-care (01) | LOC: RAD 15:15 | PROVIDERS: ATTEND Internal Medicine | DX: G47.33 Obstructive sleep apnea (adult) (pediatric) (principal); E66.01 Morbid (severe) obesity due to excess calories | CPT/HCPCS: 71046 ==

== ENCOUNTER 2024-01-04 16:00 | Outpatient (CLI) | payer OTHER | END 2024-01-04 16:01 | disposition home or self-care (01) | LOC: SLEEPLAB 16:00 | PROVIDERS: ATTEND Internal Medicine | DX: G47.33 Obstructive sleep apnea (adult) (pediatric) (principal); R06.83 Snoring; G47.10 Hypersomnia, unspecified; I10 Essential (primary) hypertension; I25.10 Atherosclerotic heart disease of native coronary artery without angina pectoris; G47.00 Insomnia, unspecified | CPT/HCPCS: 95811 ==

== ENCOUNTER 2024-03-07 09:40 | Emergency (ER) | payer OTHER, MEDICARE ==
[2024-03-07] MEDS ORDERED: Ketorolac Tromethamine 30 MG (1 mL) VIAL ONE (11:05)
== END 2024-03-07 13:43 | disposition home or self-care (01) ==
LOC: ERS 09:40
DX: M54.50 Low back pain, unspecified (principal); I10 Essential (primary) hypertension; E11.9 Type 2 diabetes mellitus without complications; I25.2 Old myocardial infarction; J44.9 Chronic obstructive pulmonary disease, unspecified; E66.9 Obesity, unspecified; Z95.1 Presence of aortocoronary bypass graft
CPT/HCPCS: 72100; 96372; J1885

== ENCOUNTER 2024-04-30 16:23 | Emergency (ER) | payer OTHER, MEDICARE ==
[2024-04-30] MEDS ORDERED: fentaNYL 50 mcg/mL 1 mL Vial ONE (17:04)
[2024-04-30 18:15] LABS: #Basophils 0.06 10x3/uL (0.0-0.2); %Basophils 0.6 % (0.0-1.0); %Eosinophils 1.7 % (0.0-10.0); %Lymphocytes 14.1 % (21.0-51.0); %Monocytes 7.7 % (0.0-10.0); %Neutrophils 75.4 % (42.0-75.0); Hemoglobin 12.9 g/dL (14.0-18.0); Mean Corpuscular HGB CONC 33.1 g/dL (32.0-36.0); Mean Corpuscular Hemoglobin 31.9 pg (27.0-31.0); Mean Corpuscular Volume 96.3 fL (78.0-98.0); Mean Platelet Volume 9.2 fL (7.4-10.4); Platelet Count 206 10x3/uL (130-400); RBC Distribution Width 12.9 % (11.5-14.5); Red Blood Cell (RBC) Count 4.05 mill/uL (4.70-6.10)
[2024-04-30 18:28] LABS: INR-International Normal Ratio 1.1; Prothrombin Time 13.8 sec (12.0-14.7)
[2024-04-30 18:29] LABS: PTT 28.3 sec (22.9-36.1)
[2024-04-30 18:38] LABS: ALT (SGPT) 16 U/L (8-55); AST (SGOT) 17 U/L (5-34); Albumin 3.4 g/dL (3.4-4.8); Alkaline Phosphatase 85 U/L (40-110); Anion Gap 12 mmol/L (10-20); BUN (Urea Nitrogen) 17 mg/dL (8.4-25.7); Bilirubin, Total 0.9 mg/dL (0.2-1.2); Calc. Creatinine Clearance 0 mL/min (70-130); Calcium 8.8 mg/dL (7.8-10.44); Carbon Dioxide 28 mmol/L (23-31); Chloride 101 mmol/L (98-107); Estimated GFR 57; Globulin 3.4 g/dL (2.4-3.5); Glucose 154 mg/dL (83-110); Potassium 3.8 mmol/L (3.5-5.1); Protein, Total 6.8 g/dL (5.8-8.1); Sodium 137 mmol/L (136-145)
[2024-04-30] MEDS ORDERED: Morphine 2 MG/ML VIAL ONE (19:19)
[2024-04-30] MEDS ORDERED: Boostrix 0.5 ML (Tdap) VIAL (>/=7 yrs of age) ONE (19:20)
[2024-04-30] MEDS ORDERED: HYDROcodone/Acetaminophen 5/325 mg Tablet ONE (19:20)
== END 2024-04-30 20:23 | disposition home or self-care (01) ==
LOC: ERS 16:23
DX: R51.9 Headache, unspecified (principal); S42.201A Unspecified fracture of upper end of right humerus, initial encounter for closed fracture; S42.351A Displaced comminuted fracture of shaft of humerus, right arm, initial encounter for closed fracture; S02.2XXA Fracture of nasal bones, initial encounter for closed fracture; R04.0 Epistaxis; I25.10 Atherosclerotic heart disease of native coronary artery without angina pectoris; I25.2 Old myocardial infarction; E11.9 Type 2 diabetes mellitus without complications; I10 Essential (primary) hypertension; E78.2 Mixed hyperlipidemia; J44.9 Chronic obstructive pulmonary disease, unspecified; E66.9 Obesity, unspecified; W11.XXXA Fall on and from ladder, initial encounter; Z23 Encounter for immunization
CPT/HCPCS: 36415; 70450; 72125; 80053; 85025; 85610; 85730; 90715; 93005; 96374; 96375; J2272; J3010

== ENCOUNTER 2025-05-26 08:27 | Emergency (ER) | payer OTHER, MEDICARE ==
[2025-05-26] MEDS ORDERED: Proparacaine 0.5% Opth 15 ML BOT ONE (08:39)
[2025-05-26] MEDS ORDERED: Fluorescein Opthalmic Strip ONE ×2 (08:39→08:48)
== END 2025-05-26 10:29 | disposition home or self-care (01) ==
LOC: ERS 08:27
DX: H16.001 Unspecified corneal ulcer, right eye (principal); R29.700 NIHSS score 0; I25.10 Atherosclerotic heart disease of native coronary artery without angina pectoris; I25.2 Old myocardial infarction; E11.9 Type 2 diabetes mellitus without complications; I10 Essential (primary) hypertension; J44.9 Chronic obstructive pulmonary disease, unspecified
CPT/HCPCS: 99283